=== PATIENT | male | born 1950 | race Two or more races ===

== ENCOUNTER → 2025-01-26 | Outpatient (CLI) | payer MEDICARE, SELFPAY ==
--- NOTE | 2025-01-26 12:28 | XR_ITS ---
Examination: Abdomen AP single view Technique: AP portable supine abdomen, single view Exam date and time: January 26, 2025, 1239 hours INDICATIONS: Abdominal pain beginning 2 months ago. FINDINGS: Mild small bowel ileus Moderate air and stool throughout the colon. No obstruction. Advanced right hip osteoarthritis IMPRESSION: Mild small bowel ileus
== END | disposition home or self-care (01) ==
PROVIDERS: PCP Physician Assistant; Referring Provider Physician Assistant; Visit Provider Physician Assistant
DX: K56.7 Ileus, unspecified (principal)
CPT/HCPCS: 74018

== ENCOUNTER → 2025-04-03 | Outpatient (CLI) | payer MEDICARE, SELFPAY ==
--- NOTE | 2025-04-03 15:35 | XR_ITS ---
Examination: Left elbow 3 views Technique: Elbow AP, oblique, lateral 3 views Exam date and time: April 03, 2025, 1600 hours Dictation: Left elbow pain beginning 15 days ago. 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
--- NOTE | 2025-04-03 15:35 | XR_ITS ---
Examination: Knee, right, 3 views Technique: Knee AP, lateral, oblique 3 views Date and time of exam: April 03, 2025, 1358 hours INDICATION: Knee pain beginning 2 weeks ago. FINDINGS: Prominent osteopenia Moderate to advanced tricompartment osteoarthritis. No fracture or dislocation Small knee effusion IMPRESSION: Moderate to advanced tricompartment osteoarthritis
== END | disposition home or self-care (01) ==
LOC: CDIM 15:20
PROVIDERS: PCP Physician Assistant; Referring Provider Physician Assistant; Visit Provider Physician Assistant
DX: M19.022 Primary osteoarthritis, left elbow (principal); M17.11 Unilateral primary osteoarthritis, right knee
CPT/HCPCS: 73080; 73562